=== PATIENT | male | born 1945 | race Caucasian/White ===

== ENCOUNTER 2019-04-24 10:41 | Inpatient (IN) | payer MEDICARE ==
[~2019-04-24] VITALS: Ht 177 cm; Wt 117.9 kg
[2019-04-24 12:19] LABS: BASOPHILS % 0.4 % (0.0-2.0); EOSINOPHILS % 0.8 % (0.0-5.0); HEMATOCRIT. 36.4 % (42.0-52.0); HEMOGLOBIN. 11.9 g/dL (14.0-18.0); LYMPHOCYTES % 11.2 % (20.0-50.0); MEAN CORPUSCULAR HEMOGLOBIN 31.2 pg (28.0-32.0); MEAN CORPUSCULAR VOLUME 95.8 fL (80.0-94.0); MEAN PLATELET VOLUME 7.8 fl (7.4-10.4); NEUTROPHILS % 81.6 % (40.0-76.0); PLATELET 211 x1000/uL (130-400); RED CELL DISTRIBUTION WIDTH 14.7 % (11.6-14.6)
[2019-04-24 12:26] LABS: CHLORIDE 116 mEq/L (98-107)
[2019-04-24 12:28] LABS: PROTHROMBIN TIME 10.3 sec (9.6-11.0)
[2019-04-24 17:00] VITALS: BP 178/63
[2019-04-24] MEDS ORDERED: LISI2.5T47 PO (17:42)
[2019-04-24] MEDS ORDERED: AMLO2.5T45 PO (17:42)
[2019-04-24] MEDS ORDERED: TAMS-11 MT (17:43)
[2019-04-24] MEDS ORDERED: GABA-529 PO (17:43)
[2019-04-24] MEDS ORDERED: ACETAMINOPHEN 325MG TABLET PO PRN (18:00)
[2019-04-24] MEDS ORDERED: DEXTROSE 50% WATER 50ML SYRINGE IV PRN ×2 (18:00)
[2019-04-24] MEDS ORDERED: MAGNESIUM/ALUMINUM HYDROXIDE/SIMETHICONE 30ML UDC PO PRN (18:00)
[2019-04-24] MEDS ORDERED: ENOXAPARIN 40MG/0.4ML SYR SUBCUT SCH (18:00)
[2019-04-24] MEDS ORDERED: ONDANSETRON HCL 4MG/2ML INJ IV PRN (18:00)
[2019-04-24 18:07] VITALS: BP 178/63
[2019-04-24] MEDS ORDERED: ENOXAPARIN 30MG/0.3ML SYR SUBCUT SCH (18:30)
[2019-04-24] MEDS: CLONIDINE 0.1MG TABLET PO PRN ×2 (18:41→23:04)
[2019-04-24] MEDS: HYDROCODONE/ACETAMINOPHEN 5/325MG TABLET PO PRN (18:48)
[2019-04-24] MEDS: DEXT 5%/0.45% NACL 1000ML 1,000 ML IV SCH (18:49)
[2019-04-24 20:00] VITALS: BP 167/74
[2019-04-24] MEDS ORDERED: VANCOMYCIN 1,750 MG in DEXT 5% WATER 500 ML IV NR (21:30)
[2019-04-24] MEDS: BLOOD SUGAR DIAGNOSTIC STRIP TEST SCH (21:59)
[2019-04-24] MEDS: PIPERACILLIN/TAZ 2.25G PREMIX 50 ML IV SCH (23:04)
[2019-04-25] VITALS: BP 153/67
[2019-04-25] MEDS: PIPERACILLIN/TAZ 2.25G PREMIX 50 ML IV SCH ×4 (03:41→21:50)
[2019-04-25 04:00] VITALS: BP 161/52
[2019-04-25 06:14] LABS: BASOPHILS % 0.6 % (0.0-2.0); EOSINOPHILS % 1.3 % (0.0-5.0); HEMATOCRIT. 33.9 % (42.0-52.0); HEMOGLOBIN. 10.9 g/dL (14.0-18.0); LYMPHOCYTES % 12.1 % (20.0-50.0); MEAN CORPUSCULAR HEMOGLOBIN 30.9 pg (28.0-32.0); MEAN CORPUSCULAR VOLUME 95.6 fL (80.0-94.0); MEAN PLATELET VOLUME 8.4 fl (7.4-10.4); MONOCYTES % 8.3 % (2.0-8.0); NEUTROPHILS % 77.7 % (40.0-76.0); PLATELET 189 x1000/uL (130-400); RED BLOOD CELL COUNT 3.54 mill/uL (4.7-6.1); RED CELL DISTRIBUTION WIDTH 14.3 % (11.6-14.6)
[2019-04-25 06:32] LABS: PHOSPHORUS 2.6 mg/dL (2.5-4.9)
[2019-04-25] MEDS: BLOOD SUGAR DIAGNOSTIC STRIP TEST SCH ×4 (07:20→21:55)
[2019-04-25 08:00] VITALS: BP 161/62
[2019-04-25] MEDS: CLONIDINE 0.1MG TABLET PO PRN ×2 (08:23→15:36)
[2019-04-25] MEDS: HYDROCODONE/ACETAMINOPHEN 5/325MG TABLET PO PRN (08:43)
[2019-04-25] MEDS ORDERED: PNEUMOCOCCAL 23-VAL P-SAC VAC 0.5 ML IM ONE (09:00)
[2019-04-25] MEDS ORDERED: DEXTROSE 50% WATER 50ML SYRINGE IV PRN (09:15)
[2019-04-25] MEDS: DEXT 5%/0.45% NACL 1000ML 1,000 ML IV SCH (10:46)
[2019-04-25] MEDS ORDERED: INSU100I28 SQ (10:51)
[2019-04-25 12:00] VITALS: BP 165/64
[2019-04-25] MEDS ORDERED: BLOOD SUGAR DIAGNOSTIC STRIP TEST SCH (12:20)
[2019-04-25] MEDS: TAMSULOSIN HCL 0.4MG SR CAPSULE PO SCH (13:18)
[2019-04-25] MEDS: AMLODIPINE 2.5MG TABLET PO SCH (13:19)
[2019-04-25] MEDS: INSULIN LISPRO 100 UNITS/ML SUBCUT SCH ×3 (13:19→22:00)
[2019-04-25] MEDS: GABAPENTIN 100MG CAPSULE PO SCH ×2 (14:50→22:48)
[2019-04-25 16:00] VITALS: BP 173/67
[2019-04-25] MEDS: ENOXAPARIN 40MG/0.4ML SYR SUBCUT SCH (17:53)
[2019-04-25 20:00] VITALS: BP 129/66
[2019-04-25] MEDS ORDERED: INSULIN GLARGINE UD 100 UNITS/ML SYR SUBCUT SCH (22:00)
[2019-04-25] MEDS ORDERED: VANCOMYCIN 1500MG in DEXTROSE 5% WATER 250ML IV SCH (22:00)
[2019-04-26] VITALS: BP 167/72
[2019-04-26] MEDS: DEXT 5%/0.45% NACL 1000ML 1,000 ML IV SCH ×2 (03:09→20:10)
[2019-04-26] MEDS: PIPERACILLIN/TAZ 2.25G PREMIX 50 ML IV SCH ×4 (03:38→20:10)
[2019-04-26 04:00] VITALS: BP 176/76
[2019-04-26] MEDS: CLONIDINE 0.1MG TABLET PO PRN (04:47)
[2019-04-26] MEDS: GABAPENTIN 100MG CAPSULE PO SCH ×3 (06:26→22:20)
[2019-04-26] MEDS: BLOOD SUGAR DIAGNOSTIC STRIP TEST SCH ×4 (06:30→20:25)
[2019-04-26 07:12] LABS: EOSINOPHILS % 4.7 % (0.0-5.0); HEMATOCRIT. 33.3 % (42.0-52.0); HEMOGLOBIN. 11.3 g/dL (14.0-18.0); LYMPHOCYTES % 23.1 % (20.0-50.0); MEAN CORPUSCULAR HEMOGLOBIN 32.1 pg (28.0-32.0); MEAN CORPUSCULAR VOLUME 94.3 fL (80.0-94.0); MEAN PLATELET VOLUME 8.1 fl (7.4-10.4); NEUTROPHILS % 59.2 % (40.0-76.0); PLATELET 192 x1000/uL (130-400); RED BLOOD CELL COUNT 3.53 mill/uL (4.7-6.1); RED CELL DISTRIBUTION WIDTH 14.4 % (11.6-14.6)
[2019-04-26 08:00] VITALS: BP 175/67
[2019-04-26] MEDS: AMLODIPINE 2.5MG TABLET PO SCH (09:35)
[2019-04-26] MEDS: LISINOPRIL 2.5MG TABLET PO SCH (09:35)
[2019-04-26] MEDS: TAMSULOSIN HCL 0.4MG SR CAPSULE PO SCH (09:36)
[2019-04-26] MEDS: INSULIN LISPRO 100 UNITS/ML SUBCUT SCH ×4 (09:37→20:36)
[2019-04-26 12:00] VITALS: BP 122/77
[2019-04-26 14:37] LABS: CLARITY URINE CLOUDY (CLEAR); COLOR URINE YELLOW (YELLOW); KETONES URINE NEGATIVE (NEGATIVE); LEUKOCYTE ESTERASE URINE 3+ (NEGATIVE); NITRITE URINE NEGATIVE (NEGATIVE); OCCULT BLOOD URINE 1+ (NEGATIVE); PROTEIN URINE 2+ (NEGATIVE); SPECIFIC GRAVITY URINE 1.011 (1.005-1.030); UROBILINOGEN URINE 0.2 E.U./dL (0.2-1.0)
[2019-04-26 16:00] VITALS: BP 188/86
[2019-04-26] MEDS: ENOXAPARIN 40MG/0.4ML SYR SUBCUT SCH (18:52)
[2019-04-26 20:00] VITALS: BP 164/56
[2019-04-26] MEDS ORDERED: INSULIN GLARGINE UD 100 UNITS/ML SYR SUBCUT SCH (22:00)
[2019-04-27] VITALS: BP 159/56
[2019-04-27] MEDS: HYDROCODONE/ACETAMINOPHEN 5/325MG TABLET PO PRN (03:52)
[2019-04-27 04:00] VITALS: BP 163/73
[2019-04-27] MEDS: PIPERACILLIN/TAZ 2.25G PREMIX 50 ML IV SCH ×2 (05:19→08:35)
[2019-04-27] MEDS: BLOOD SUGAR DIAGNOSTIC STRIP TEST SCH ×2 (06:21→12:00)
[2019-04-27] MEDS: GABAPENTIN 100MG CAPSULE PO SCH (06:22)
[2019-04-27 06:53] LABS: BASOPHILS % 0.9 % (0.0-2.0); EOSINOPHILS % 5.5 % (0.0-5.0); HEMATOCRIT. 34.5 % (42.0-52.0); HEMOGLOBIN. 11.6 g/dL (14.0-18.0); LYMPHOCYTES % 29.6 % (20.0-50.0); MEAN CORPUSCULAR HEMOGLOBIN 31.7 pg (28.0-32.0); MEAN CORPUSCULAR VOLUME 94.4 fL (80.0-94.0); MEAN PLATELET VOLUME 8.1 fl (7.4-10.4); MONOCYTES % 11.7 % (2.0-8.0); NEUTROPHILS % 52.3 % (40.0-76.0); PLATELET 193 x1000/uL (130-400); RED BLOOD CELL COUNT 3.66 mill/uL (4.7-6.1); RED CELL DISTRIBUTION WIDTH 14.3 % (11.6-14.6)
[2019-04-27 08:00] VITALS: BP 183/75
[2019-04-27] MEDS: INSULIN LISPRO 100 UNITS/ML SUBCUT SCH ×2 (08:33→12:04)
[2019-04-27] MEDS: AMLODIPINE 2.5MG TABLET PO SCH (08:35)
[2019-04-27] MEDS: TAMSULOSIN HCL 0.4MG SR CAPSULE PO SCH (08:35)
[2019-04-27] MEDS: LISINOPRIL 2.5MG TABLET PO SCH (08:36)
[2019-04-27] MEDS ORDERED: INSU100I28 SQ (09:27)
[2019-04-27 10:37] VITALS: BP 152/68
[2019-04-27 12:00] VITALS: BP 179/76
[2019-04-27] MEDS: DEXT 5%/0.45% NACL 1000ML 1,000 ML IV SCH (12:04)
== END 2019-04-27 15:15 | disposition home or self-care (01) | DRG 871 ==
LOC: ER 10:56 → 6EST 14:19 → EDBEDREQ 14:21 → ENRESERV 15:31 → 5WST 04-25 21:14 → 6EST 04-25 21:30
PROVIDERS: ADMIT Family Medicine Adult Medicine; ATTEND Family Medicine Adult Medicine
DX: A41.9 Sepsis, unspecified organism (principal); N18.6 End stage renal disease; E87.2 Acidosis; E44.1 Mild protein-calorie malnutrition; E87.0 Hyperosmolality and hypernatremia; N39.0 Urinary tract infection, site not specified; N17.9 Acute kidney failure, unspecified; I12.0 Hypertensive chronic kidney disease with stage 5 chronic kidney disease or end stage renal disease; E11.649 Type 2 diabetes mellitus with hypoglycemia without coma; E11.51 Type 2 diabetes mellitus with diabetic peripheral angiopathy without gangrene; D64.9 Anemia, unspecified; E11.22 Type 2 diabetes mellitus with diabetic chronic kidney disease; E66.01 Morbid (severe) obesity due to excess calories; E11.65 Type 2 diabetes mellitus with hyperglycemia; N40.0 Benign prostatic hyperplasia without lower urinary tract symptoms; B96.89 Other specified bacterial agents as the cause of diseases classified elsewhere; Z89.512 Acquired absence of left leg below knee; Z79.4 Long term (current) use of insulin; Z89.9 Acquired absence of limb, unspecified; Z87.891 Personal history of nicotine dependence; Z89.511 Acquired absence of right leg below knee; Z68.37 Body mass index [BMI] 37.0-37.9, adult
CPT/HCPCS: 36415; 71045; 76770; 80048; 80202; 81003; 82962; 83036; 83735; 83880; 84100; 84145; 84153; 84443; 84484; 87077; 87186; 93005; 93970; 99291; C1893; J1650; J1815; J2543; J3370; J7060; G0103

== ENCOUNTER 2019-05-16 18:41 | Emergency (ER) | payer MEDICARE ==
[~2019-05-16] VITALS: Ht 182.9 cm; Wt 120.0 kg
[~2019-05-16 18:41] MED LIST: AMLO2.5T45 PO; GABA-529 PO; INSU100I28 SQ; LISI2.5T47 PO; TAMS-11 MT
[2019-05-16 19:20] LABS: BASOPHILS % 0.8 % (0.0-2.0); EOSINOPHILS % 1.9 % (0.0-5.0); HEMATOCRIT. 33.6 % (42.0-52.0); HEMOGLOBIN. 11.1 g/dL (14.0-18.0); LYMPHOCYTES % 22.9 % (20.0-50.0); MEAN CORPUSCULAR HEMOGLOBIN 31.8 pg (28.0-32.0); MEAN CORPUSCULAR VOLUME 96.3 fL (80.0-94.0); MEAN PLATELET VOLUME 7.8 fl (7.4-10.4); MONOCYTES % 6.2 % (2.0-8.0); NEUTROPHILS % 68.2 % (40.0-76.0); PLATELET 207 x1000/uL (130-400); RED BLOOD CELL COUNT 3.49 mill/uL (4.7-6.1); RED CELL DISTRIBUTION WIDTH 15.2 % (11.6-14.6)
[2019-05-16 19:23] LABS: CHLORIDE 120 mEq/L (98-107)
[2019-05-16 21:24] VITALS: BP 181/76
== END 2019-05-16 21:27 | disposition home or self-care (01) ==
LOC: ER 18:41
DX: E11.649 Type 2 diabetes mellitus with hypoglycemia without coma (principal); Z79.4 Long term (current) use of insulin; I10 Essential (primary) hypertension
CPT/HCPCS: 36415; 71045; 82962; 83880; 84484; 93005; 99284